=== PATIENT | female | born 1990 | race Two or more races ===

== ENCOUNTER 2016-06-11 08:21 | Emergency (ER) | payer OTHER ==
[2016-06-11 08:27] VITALS: BP 94/49; PULSE 89; TEMP 98; BMI 28.0
--- NOTE | 2016-06-11 09:18 | PDOC ---
History of Present Illness - General Chief Complaint: Cold Symptoms Stated Complaint: COLD, CONGESTION, WHEEZING, SOB Time Seen by Provider: 06/11/16 08:50 - History of Present Illness Initial Comments: 06/11/16 09:12 Patient is here with complaints of cough, cold symptoms, and some wheezing. Suffers from asthma and does not have any Proventil left. Is 22 weeks with high risk , and albuterol Proventil is cleared by her FRYER LINE HELPER for when necessary use. Patient denies fever, but states has copious secretions and cold symptoms Timing/Duration: reports: constant, changing over time Severity: reports: mild, moderate Past History - Travel Traveled outside of the country in the last 30 days: No Close contact w/someone who was outside of country & ill: No - Past Medical History Allergies/Adverse Reactions: Allergies Allergy/AdvReac Type Severity Reaction Status Date / Time No Known Allergies Allergy Verified 06/11/16 08:27 Home Medications: Ambulatory Orders Pnv95/Ferrous Fumarate/FA [ Caplet] 1 each PO DAILY 03/26/16 Albuterol Sulfate Inhaler - [Ventolin HFA Inhaler -] 1 - 2 inh PO Q4H #1 inhaler 06/11/16 Albuterol Sulfate [Proair Respiclick] 90 mcg IH Q6H PRN #1 [email or web address] 06/11/16 Anemia: Yes Asthma: Yes Cancer: No Cardiac Disorders: No Diabetes: No HTN: No (LOW BP) Seizures: No Thyroid Disease: No - Surgical History Abdominal Surgery: Yes (IUD SX REMOVED) - Family Disease History Family Disease History: Diabetes: Grandparents (pat gf) - Reproductive History (#): 9 Para: 3 Therapeutic (s) & number: Yes Spontaneous : 0 - Immunization History Immunization Up to Date: Yes - Psycho/Social/Smoking Cessation Hx Anxiety: No Suicidal Ideation: No Smoking Status: No Smoking History: Never smoked Have you smoked in the past 12 months: No Number of Cigarettes Smoked Daily: 0 Cigars Per Day: 0 Hx Alcohol Use: No Drug/Substance Use Hx: No Substance Use Type: None Hx Substance Use Treatment: No Respiratory Specific PMHX - Complaint Specific PMHX Bronchitis: No Pneumonia: No Review of Systems - Review of Systems Able to Perform ROS?: Yes Is the patient limited Bulgarian proficient: Yes Constitutional: Yes: Symptoms Reported, See HPI, Malaise. No: Fever HEENTM: Yes: Symptoms Reported, See HPI, Nose Congestion Respiratory: Yes: See HPI (clear), Cough, Wheezing (nonproductive) Musculoskeletal: No: Symptoms Reported All Other Systems: Reviewed and Negative *Physical Exam - Vital Signs Last Vital Signs Temp Pulse Resp BP Pulse Ox 98.0 F 89 20 94/49 99 06/11/16 08:24 06/11/16 08:24 06/11/16 08:24 06/11/16 08:24 06/11/16 08:24 - Physical Exam General Appearance: Yes: Nourished, Appropriately Dressed, Apparent Distress, Mild Distress HEENT: positive: AARTI, TMs Normal (congested but clear), Nasal Congestion, Rhinorrhea Neck: positive: Supple, Lymphadenopathy (R), Lymphadenopathy (L) Respiratory/Chest: positive: Lungs Clear, Wheezing Gastrointestinal/Abdominal: positive: Soft Musculoskeletal: positive: Normal Inspection Extremity: positive: Normal Capillary Refill, Normal Range of Motion Integumentary: positive: Dry, Pale Neurologic: positive: mlt II-XII NML intact, Fully Oriented, Alert, Normal Mood/ Affect, Normal Response, Motor Strength 5/5 Progress Note - Progress Note Progress Note: Probable common cold with , will treat conservatively *DC/Admit/Observation/Transfer Diagnosis at time of Disposition: Common cold virus - Discharge Dispostion Disposition: HOME Condition at time of disposition: Stable Admit: No - Patient Instructions Printed Discharge Instructions: DI for Common Cold Additional Instructions: Rest, drink lots of fluids: Teas, water, soups, Pedialyte Saltwater gargles Steamy showers/seem to face break up mucus Avoid contact with others until fevers and cough resolved Lots of handwashing and good hygiene Continue [id number] medications for symptomatic relief Tylenol or Motrin for fever and pain Followup with private physician in one to 2 days as needed Return to emergency department for worsened symptoms, fevers, dehydration
== END 2016-06-11 09:20 | disposition home or self-care (01) ==
LOC: JERFT 08:21
DX: O26.892 Other specified pregnancy related conditions, second trimester (principal); J00 Acute nasopharyngitis [common cold]; J45.909 Unspecified asthma, uncomplicated; Z3A.22 22 weeks gestation of pregnancy; I95.9 Hypotension, unspecified
CPT/HCPCS: 99281-25

== ENCOUNTER 2016-07-16 13:36 | Observation (INO) | payer OTHER ==
[2016-07-16] MEDS ORDERED: SODIUM CHLORIDE 1,000 ML IV STA (14:08)
--- NOTE | 2016-07-16 15:15 | PDOC ---
History of Present Illness - General Chief Complaint: Syncope/Near Syncope Stated Complaint: PT FELL AND PASSED OUT Time Seen by Provider: 07/16/16 13:54 - History of Present Illness Initial Comments: 07/16/16 15:15 Ms. Morris is a 26-yea-old female who is currently 28 weeks . She presents the to the ED today after a syncopal episode at home where she fell down 3 stairs. she then came to the hospital and was evaluated by labor and delivery. At labor and delivery it was discovered she had a heart rate 150 and 170. She also admits to palpitations SOB and dizziness with these episodes. Patient states this has happened to her before and she is currently being followed by cardiology for the issue. She recently had a holter monitor placed and it was removed yesterday. She states that she is due for a echocardiogram. It is scheduled 2 weeks from now. Pt. denies head, neck or back pain. Denies any recent illness, fevers, chills, rhinorrhea, cough, n/v/d. Past History - Past Medical History Allergies/Adverse Reactions: Allergies Allergy/AdvReac Type Severity Reaction Status Date / Time No Known Allergies Allergy Verified 07/16/16 13:55 Home Medications: Ambulatory Orders Pnv95/Ferrous Fumarate/FA [ Caplet] 1 each PO DAILY 03/26/16 Albuterol Sulfate Inhaler - [Ventolin HFA Inhaler -] 1 - 2 inh PO Q4H PRN Anemia: Yes Asthma: Yes Cancer: No Cardiac Disorders: No Diabetes: No HTN: No (LOW BP) Seizures: No Thyroid Disease: No - Surgical History Abdominal Surgery: Yes (IUD SX REMOVED) - Family Disease History Family Disease History: Diabetes: Grandparents (pat gf) - Reproductive History (#): 9 Para: 3 Therapeutic (s) & number: Yes Spontaneous : 0 - Immunization History Immunization Up to Date: Yes - Psycho/Social/Smoking Cessation Hx Anxiety: No Suicidal Ideation: No Smoking Status: No Smoking History: Never smoked Have you smoked in the past 12 months: No Number of Cigarettes Smoked Daily: 0 Cigars Per Day: 0 Information on smoking cessation initiated: No Hx Alcohol Use: No Drug/Substance Use Hx: No Substance Use Type: None Hx Substance Use Treatment: No *Physical Exam - Vital Signs Last Vital Signs Temp Pulse Resp BP Pulse Ox 88 18 99/57 98 07/16/16 13:45 07/16/16 13:45 07/16/16 13:45 07/16/16 13:45 - Physical Exam Comments: 07/16/16 15:26 GENERAL: Well developed, well nourished. Awake and alert. No acute distress. HEENT: Normocephalic, atraumatic. PERRLA, EOMI. No conjunctival pallor. Sclera are non- icteric. Moist mucous membranes. Oropharynx is clear. NECK: (-) TTP of midline. Supple. Full ROM. No JVD. Carotid pulses 2+ and symmetric, without bruits. No thyromegaly. No lymphadenopathy. CARDIOVASCULAR: Regular rate and rhythm. (+) III/ systolic murmur loudest at the base between the 2nd/3rd intercostal space.(-) rubs, or gallops. Distal pulses are 2+ and symmetric. PULMONARY: No evidence of respiratory distress. Lungs clear to auscultation bilaterally. No wheezing, rales or rhonchi. ABDOMINAL: Obviously female with the height of the fundus past the umbilicus. Soft. Non-tender. . No rebound or guarding. No organomegaly. Normoactive bowel sounds. MUSCULOSKELETAL Normal range of motion at all joints. No bony deformities or tenderness. No CVA tenderness. EXTREMITIES: No cyanosis. No clubbing. No edema. No calf tenderness. SKIN: Warm and dry. Normal capillary refill. No rashes. No jaundice. NEUROLOGICAL: Alert, awake, appropriate. Cranial nerves 2-12 intact. No deficits to light touch and temperature in face, upper extremities and lower extremities. No motor deficits in the in face, upper extremities and lower extremities. Normoreflexic in the upper and lower extremities. Normal speech. Toes are down- going bilaterally. Gait is normal without ataxia. PSYCHIATRIC: Cooperative. Good eye contact. Appropriate mood and affect. Medical Decision Making - Medical Decision Making 07/16/16 13:30 Ms. Morris is a 26 y/o female 28 weeks presenting after a syncopal episode. Pt. was evaluated by L&D for the pregancy and sent downstairs to be medically cleared. She had basic labs drawn upstairs. Her rate is now 76 bpm with a regular rate and rhythm. Will call for a cardiology consult. Regarding the fall, pt. has no focal neurological deficits, and has no mental status changes two hours after event. [place] CT rule is a zero, Nexus criteria is a zero, will not image at this time. CBC, CMP is WNL. Labs drawn by labor and delivery Will order echocardiogram. Fluids Will re-evaluate. 15:[address] Mcconnell. [address] page for [address]. Souza. 07/16/16 16:[address] Mcconnell. Spoke with at this time and discussed the case. Agreed to admit to obs. Will see tomorrow. *DC/Admit/Observation/Transfer Diagnosis at time of Disposition: Cardiac related syncope Qualifiers: Weeks of gestation: 28 weeks Qualified Code(s): Z3A.28 - 28 weeks gestation of - Discharge Dispostion Disposition: HOME Condition at time of disposition: Good Admit: Yes
[2016-07-16] MEDS ORDERED: ACETAMINOPHEN 325 MG TABLET (FP) PO ONE (17:36)
[2016-07-16] MEDS ORDERED: ALBUTEROL SO4 6.7 GM HFA INHALER IH PRN ×2 (19:31→19:52)
[2016-07-16] MEDS ORDERED: ACETAMINOPHEN 325 MG TABLET (FP) PO PRN (19:32)
--- NOTE | 2016-07-16 19:40 | HP ---
Admitting History and Physical - Admission Chief Complaint: syncopal episode, palpitations History of Present Illness: 26 yo female with single IUP at 28.5 weeks gestation presents to [facility] today with complaints of a syncopal episode and a fall down 3 stairs this morning. The patient was unsure if she fell forward on her abdomen or if she fell on her back, but she awoke on her side. The patient states she feels some sorenss in her lower hip area, but denies any painful contractions or vaginal bleeding. Pt reports positive movement. The patient was seen on Labor and Delivery with a normal heart rate tracing - reactive non stress test - and also had an ultrasound showing reassuring status of fetus. While on the labor floor , the patient did have a period of tachycardia up to the 170s for approx 1-2 minutes, and at that time the patient did feel light headed and SOB. The patient has had palpitations several weeks ago and was triaged in the ED and told she had a "panic attack." However, after another episode 2 weeks ago, the patient was referred to cardiology as an outpatient. She did under go holter monitoring and was set up for an Echocardiogram as an outpatient. Since being seen in the ED today, the patient did receive an echocardiogram (report/ read pending) and has had no more episodes of tachycardia/syncope/SOB. Cardiology was consulted and advised admitting patient to observation overnight for cardiac monitoring. 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 Pulmonary: Yes: Asthma ...LMP: 03/25/13 Psych: Yes: Anxiety (history of "anxiety attacks" this ) - Smoking History Smoking history: Never smoked Have you smoked in the past 12 months: No Aproximately how many cigarettes per day: 0 - Alcohol/Substance Use Hx Alcohol Use: No History of Substance Use: reports: None - Social History Usual Living Arrangement: Yes: With Spouse ADL: Independent History of Recent Travel: No Home Medications - Allergies Allergies/Adverse Reactions: Allergies Allergy/AdvReac Type Severity Reaction Status Date / Time No Known Allergies Allergy Verified 07/16/16 13:55 - Home Medications Home Medications: Ambulatory Orders Pnv95/Ferrous Fumarate/FA [ Caplet] 1 each PO DAILY 03/26/16 Albuterol Sulfate Inhaler - [Ventolin HFA Inhaler -] 1 - 2 inh PO Q4H PRN Review of Systems - Review of Systems Constitutional: denies: Chills, Fever Eyes: reports: No Symptoms HENT: reports: No Symptoms Cardiovascular: reports: Palpitations, Shortness of Breath Respiratory: reports: SOB. denies: Orthopnea, Wheezing Gastrointestinal: denies: Nausea, Vomiting Breasts: reports: No Symptoms Reported Integumentary: reports: No Symptoms Neurological: reports: Syncope. denies: Dizziness, Headache Psychiatric: reports: No Symptoms Physical Examination Vital Signs: Vital Signs Temperature Pulse Rate 88 07/16/16 13:45 Respiratory Rate 18 07/16/16 13:45 Blood Pressure 99/57 07/16/16 13:45 O2 Sat by Pulse Oximetry (%) 100 07/16/16 14:20 Constitutional: Yes: Well Nourished, No Distress Eyes: Yes: Conjunctiva Clear, EOM Intact HENT: Yes: Atraumatic, Normocephalic Neck: Yes: Supple Cardiovascular: Yes: Regular Rate and Rhythm (currently, did have episode of tachycardia earlier) Respiratory: Yes: Regular Gastrointestinal: Yes: Normal Bowel Sounds, Soft, Other (no contractions/ abdominal tenderness noted) Renal/: Yes: Extremities: Yes: WNL Neurological: Yes: Alert, Oriented Psychiatric: Yes: Alert, Oriented Problem List - Problems (1) Cardiac related syncope Code(s): R55 - SYNCOPE AND COLLAPSE (2) Code(s): Z33.1 - STATE, INCIDENTAL Qualifiers: Weeks of gestation: 28 weeks Qualified Code(s): Z3A.28 - 28 weeks gestation of Assessment/Plan 26 y/o with SIUP at 28.5 weeks with tachycardia and syncope - status reassuring, non stress test reactive. Ultrasound normal. For non stress test Q4 hours - no signs of labor or placental abruption - tachycardia and syncope. Patient to be admitted as observation overnight as per cardiology recomendations - for cardiology consult - appreciate cardiology input - regular diet - OOB with assistance
[2016-07-16] MEDS: SODIUM CHLORIDE 1,000 ML IV SCH ×2 (20:38→22:58)
--- NOTE | 2016-07-16 23:04 | EKG ---
Test Reason : Blood Pressure : / mmHG Vent. Rate : 076 BPM Atrial Rate : 076 BPM P-R Int : 174 ms QRS Dur : 088 ms QT Int : 376 ms P-R-T Axes : 051 070 011 degrees QTc Int : 423 ms NORMAL SINUS RHYTHM WITH SINUS ARRHYTHMIA NORMAL ECG WHEN COMPARED WITH ECG OF 26-MAR-2016 16:17, NO SIGNIFICANT CHANGE WAS FOUND Confirmed by JADYN ARCE MD ([id number]) on 07/16/2016 11:04:29 PM Referred By: Confirmed By:JADYN ARCE MD
[2016-07-17 00:45] VITALS: BMI 33.0
[2016-07-17] MEDS: SODIUM CHLORIDE 1,000 ML IV SCH ×2 (08:53→19:39)
[2016-07-17] MEDS ORDERED: PT OWN MED DRAWER 7, Y5N ONE (10:26)
[2016-07-17] MEDS: PRENATAL VITAMINS W/ FOLIC ACID TABLET (FP) PO SCH (11:36)
[2016-07-18] MEDS: SODIUM CHLORIDE 1,000 ML IV SCH (06:06)
[2016-07-18 06:11] VITALS: TEMP 97.9
[2016-07-18] MEDS: PRENATAL VITAMINS W/ FOLIC ACID TABLET (FP) PO SCH (10:15)
--- NOTE | 2016-07-18 12:15 | CON.CARD ---
Consult Consult Specialty:: Cardiology Referred by:: B[employer] M[employer] AND CARRIAGE OPERATOR Reason for Consultation:: Syncope, palpitations - History of Present Illness Chief Complaint: Syncope, palpitations History of Present Illness: Ms. Morris is a 26-yea-old female h/o asthma, who is currently 28 weeks IUP admitted after sustaining syncopal episode without prodromal sxs where she fell down 3 stairs. At labor and delivery, reported that she had a heart rate 150 and 170, strips unavailable for review. She reports bronchodilator-responsive dyspnea, palpitations, tele monitor shows sinus tachycardia, echo with normal LV fxn. 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 Pulmonary: Yes: Asthma ...LMP: 03/25/13 Psych: Yes: Anxiety (history of "anxiety attacks" this ) - Alcohol/Substance Use Hx Alcohol Use: No History of Substance Use: reports: None - Smoking History Smoking history: Never smoked Have you smoked in the past 12 months: No Aproximately how many cigarettes per day: 0 - Social History ADL: Independent History of Recent Travel: No Home Medications - Allergies Allergies/Adverse Reactions: Allergies Allergy/AdvReac Type Severity Reaction Status Date / Time No Known Allergies Allergy Verified 07/16/16 13:55 - Home Medications Home Medications: Ambulatory Orders Pnv95/Ferrous Fumarate/FA [ Caplet] 1 each PO DAILY 03/26/16 Albuterol Sulfate Inhaler - [Ventolin HFA Inhaler -] 1 - 2 inh PO Q4H PRN Review of Systems - Review of Systems Cardiovascular: reports: Palpitations, Shortness of Breath Neurological: reports: Syncope Vital Signs: Vital Signs Temperature 97.9 F 07/18/16 06:00 Pulse Rate 84 07/18/16 10:16 Respiratory Rate 20 07/18/16 10:16 Blood Pressure 103/56 07/18/16 10:16 O2 Sat by Pulse Oximetry (%) 97 07/18/16 05:00 Constitutional: Yes: No Distress, Calm Neck: Yes: Supple Respiratory: Yes: Regular, CTA Bilaterally Gastrointestinal: Yes: Normal Bowel Sounds, Soft, Other (Gravid) Cardiovascular: Yes: Regular Rate and Rhythm JVD: No Carotid Bruit: No Heart Sounds: Yes: S1, S2 Edema: No - Other Data NSR without ST-T changes Tele: ST 120s Echo: Report Reviewed Ejection Fraction %: LVEF > or = 40 % Problem List - Problems (1) Code(s): Z33.1 - STATE, INCIDENTAL Qualifiers: Weeks of gestation: 28 weeks Qualified Code(s): Z3A.28 - 28 weeks gestation of (2) Palpitations Code(s): R00.2 - PALPITATIONS (3) Asthma Code(s): J45.909 - UNSPECIFIED ASTHMA, UNCOMPLICATED Qualifiers: Asthma severity: mild intermittent (4) Dyspnea on exertion Code(s): R06.09 - OTHER FORMS OF DYSPNEA (5) Syncope and collapse Code(s): R55 - SYNCOPE AND COLLAPSE (6) Sinus tachycardia Code(s): R00.0 - TACHYCARDIA, UNSPECIFIED Assessment/Plan 07/16/2016 Echo: Normal LV size and fxn, mild TR, tr-mild MR 1. Syncope episode 2. Palpitations with episodes of sinus tachycardia 3. Dyspnea, BD-responsive with h/o asthma 4. 28 wk IUP P:1. Check orthstatic vital signs 2. Albuterol MDI as needed 3. Would not treat sinus tachycardia, she has appt for 24 hr holter monitoring as outpatient 4. Thank you for consultative opportunity
--- NOTE | 2016-07-18 13:41 | DS ---
Physical Examination Vital Signs: Vital Signs Temperature 97.9 F 07/18/16 06:00 Pulse Rate 84 07/18/16 10:16 Respiratory Rate 20 07/18/16 10:16 Blood Pressure 103/56 07/18/16 10:16 O2 Sat by Pulse Oximetry (%) 100 07/18/16 10:15 Constitutional: Yes: Well Nourished, No Distress, Calm Cardiovascular: Yes: Regular Rate and Rhythm Respiratory: Yes: Regular, CTA Bilaterally Gastrointestinal: Yes: Normal Bowel Sounds, Soft ...Rectal Exam: Yes: Deferred Renal/: Yes: . No: Vaginal Bleeding Edema: No Neurological: Yes: Alert, Oriented Psychiatric: Yes: Alert, Oriented Discharge Summary Reason For Visit: CARDIAC SYNCOPE Current Active Problems Asthma (Acute) Cardiac related syncope (Acute) Dyspnea on exertion (Acute) (Acute) Sinus tachycardia (Acute) Syncope and collapse (Acute) Procedures: Principal: Echocardiogram, Telemetry/cardiac monitoring Hospital Course: Patient admitted on 07/16/16 with complaints of a syncopal episode as well as heart palpitations. Pt was seen on Labor and delivery and abruption/ labor was ruled out. The baby's heart rate monitoring was normal throughout the stay. The patient was kept for approx 36 hours on continuous cardiac monitoring and had an EKG and echocardiogram (showing normal LV function). The patient had no further episodes of palpitations/syncope during admission. The patient was seen and cleared for discharge by cardiology on 07/18/16. The patient was obstetrically stable on day of discharge as well. Condition: Good - Instructions Diet, Activity, Other Instructions: Physical activity Resume your normal everyday activity as tolerated but no strenuous exercise until seen by your doctor. You may walk unlimited shasta of and climb stairs. Avoid driving a car at this time - you may ride in a car or take a bus/taxi but do not operate a car yourself. Diet There are no dietary restrictions. Eat healthy, high-fiber foods. Drink 6 to 8 glasses of liquid each day. This will assist in keeping your bowels regular. Pain management You may take Tylenol for any pain. Call MD for any of the following: Severe pain not relieved by medication Contractions, vaginal bleeding or leaking fluid Feelings that you are going to faint or feelings of heart palpitations If the baby is not moving Referrals: Syd Rucker MD [Staff Physician] - 1 Week () Kami Álvarez DO [Staff Physician] - 1 Week Disposition: HOME - Home Medications Comprehensive Discharge Medication List: Ambulatory Orders Pnv95/Ferrous Fumarate/FA [ Caplet] 1 each PO DAILY 03/26/16 Albuterol Sulfate Inhaler - [Ventolin HFA Inhaler -] 1 - 2 inh PO Q4H PRN
[2016-07-18 13:50] VITALS: BP 101/55; PULSE 77
--- NOTE | 2016-10-08 21:01 | PN ---
Progress Note, Physician Chief Complaint: Pt admitted on 07/16/16 with episode of syncope and tachycardia. Cardiology consultation completed. Pt feeling better, desires to go home. - Objective Vital Signs: Vital Signs Temperature 97.9 F 07/18/16 06:00 Pulse Rate 77 07/18/16 13:48 Respiratory Rate 20 07/18/16 10:16 Blood Pressure 101/55 07/18/16 13:48 O2 Sat by Pulse Oximetry (%) 100 07/18/16 10:15 Constitutional: Yes: Well Nourished, No Distress, Calm HENT: Yes: Atraumatic, Normocephalic Neck: Yes: Supple, Trachea Midline Cardiovascular: Yes: Regular Rate and Rhythm Respiratory: Yes: Regular, CTA Bilaterally Gastrointestinal: Yes: Soft, Other (gravid) Psychiatric: Yes: Alert, Oriented Problem List - Problems (1) Cardiac related syncope Code(s): R55 - SYNCOPE AND COLLAPSE (2) Code(s): Z33.1 - STATE, INCIDENTAL Qualifiers: Weeks of gestation: 28 weeks Qualified Code(s): Z3A.28 - 28 weeks gestation of Assessment/Plan 26 y/o with SIUP at 28 + weeks with tachycardia and syncope - non stress tests all reactive during admission - no signs of labor or placental abruption - tachycardia and syncope. S/P cardiology consult - appreciate input - ok to follow up as outpatient per cardiology - stable from OB standpoint for discharge home
== END 2016-07-18 14:09 | disposition home or self-care (01) ==
LOC: JER 13:36 → JERBED 19:11 → J4S 21:31
PROVIDERS: ADMIT Obstetrics & Gynecology; ATTEND Obstetrics & Gynecology
DX: O26.892 Other specified pregnancy related conditions, second trimester (principal); R55 Syncope and collapse; R00.2 Palpitations; J45.909 Unspecified asthma, uncomplicated; G43.809 Other migraine, not intractable, without status migrainosus; Z3A.28 28 weeks gestation of pregnancy
CPT/HCPCS: 93005; 93010; 93306-TC; 99285-25; G0378

== ENCOUNTER 2016-09-26 06:40 | Inpatient (IN) | payer OTHER ==
[2016-09-26 07:37] VITALS: BMI 33.0
[2016-09-26] MEDS ORDERED: ELECTROLYTE-148 SOLN 500 ML IV ONE (08:07)
[2016-09-26] MEDS ORDERED: ALBUTEROL SO4 6.7 GM HFA INHALER IH PRN ×2 (08:08→09:15)
[2016-09-26] MEDS ORDERED: METHYLERGONOVINE MALEATE 0.2 MG/1 ML AMP IM PRN (08:09)
[2016-09-26] MEDS ORDERED: oxyCODONE HCL 5 MG TABLET PO PRN (08:09)
--- NOTE | 2016-09-26 08:18 | HP ---
Past Medical History - Admission Chief Complaint: Here for scheduled c section History of Present Illness: 26 y/o female with SIUP at 39 weeks here for scheduled primary section due to unstable lie. Patient also desires sterilization and requests a bilateral salpingectomy. The patient's has been complicated by episodes of syncope and tachycardia/SVT - has had workup with cardiology which was normal/negative. The patient's symptoms have improved over the last several weeks. The patient has no surgical history. PMH of asthma. No complaints today. +FM, no VB/LOF/Ctx. 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 No: HTN Pulmonary: Yes: Asthma Gastrointestinal: No: GERD, Hemorrhoids Hepatobiliary: No: Hepatitis B, Hepatitis C Renal/: No: Renal Failure, UTI Reproductive: No: Fibroids, PID, Polycystic Ovary Syndrome ...: 7 ...Para: 4 ...Term: 4 ...: 0 ...Spon : 1 ...Induced : 1 ...Multiple Gestation: 0 ...LMP: 12/28/15 ...EDC by Dates: 10/03/16 ...EDC by Sono: 10/03/16 Heme/Onc: No: Anemia Infectious Disease: No: HIV, MRSA, STD's Psych: Yes: Anxiety (history of "anxiety attacks" this ) Rheumatology: No: Lupus, Rheumatoid Arthritis - Past Surgical History Past Surgical History: Yes: Tonsillectomy Hx Myomectomy: No Hx Transabdominal Cerclage: No - Smoking History Smoking history: Never smoked Have you smoked in the past 12 months: No Aproximately how many cigarettes per day: 0 - Alcohol/Substance Use Hx Alcohol Use: No History of Substance Use: reports: None - Social History Usual Living Arrangement: Yes: With Spouse ADL: Independent History of Recent Travel: No Home Medications - Allergies Allergies/Adverse Reactions: Allergies Allergy/AdvReac Type Severity Reaction Status Date / Time No Known Allergies Allergy Verified 09/26/16 07:39 - Home Medications Home Medications: Ambulatory Orders Pnv95/Iron Fum/Folic Acid [ Caplet] 1 each PO DAILY 03/26/16 Albuterol Sulfate Inhaler - [Ventolin HFA Inhaler -] 1 - 2 inh PO Q4H PRN Review of Systems - Review of Systems Constitutional: reports: No Symptoms Eyes: reports: No Symptoms HENT: reports: No Symptoms Neck: reports: No Symptoms Cardiovascular: reports: No Symptoms Respiratory: reports: No Symptoms Gastrointestinal: reports: No Symptoms Genitourinary: reports: No Symptoms Breasts: reports: No Symptoms Reported Musculoskeletal: reports: No Symptoms Integumentary: reports: No Symptoms Neurological: reports: No Symptoms Endocrine: reports: No Symptoms Hematology/Lymphatic: reports: No Symptoms Psychiatric: reports: No Symptoms Physical Exam - Maternity Vital Signs: Vital Signs Temperature 97.8 F 09/26/16 07:22 Pulse Rate 101 H 09/26/16 07:22 Respiratory Rate 14 09/26/16 07:22 Blood Pressure 106/61 09/26/16 07:22 O2 Sat by Pulse Oximetry (%) Constitutional: Yes: Well Nourished, No Distress, Calm Eyes: Yes: Conjunctiva Clear, EOM Intact HENT: Yes: Atraumatic, Normocephalic Neck: Yes: Supple, Trachea Midline Cardiovascular: Yes: Regular Rate and Rhythm Lungs: Clear to auscultation - Abdominal Exam/OB Number of Fetuses: Single Presentation: Vertex Contractions: No Category: I Accelerations: Uniform Decelerations: None - Vaginal Exam/OB Amniotic Membrane Status: Intact - Physical Exam Psychiatric: Yes: Alert, Oriented Hemorrhage Risk Assessment - Risk Factors Medium Risk Factors: Yes: None High Risk Factors: Yes: None Risk Score: 1 Risk Level: Medium Risk Problem List - Problems (1) Term Code(s): Z34.80 - ENCOUNTER FOR SUPRVSN OF NORMAL , UNSP TRIMESTER (2) Encounter for sterilization Code(s): Z30.2 - ENCOUNTER FOR STERILIZATION Assessment/Plan 26 y/o with SIUP at 39 weeks here for primary c section and b/l salpingectomy - AFVSS - NPO, SCDs, Jackman catheter - anesthesia aware and nursing aware - consents signed for procedure, R/B/A again explained - for c section this a.m.
[2016-09-26] MEDS: OXYTOCIN 20 UNITS in 0.9% NS 1,000 ML IV SCH ×2 (08:32→15:10)
[2016-09-26] MEDS ORDERED: ELECTROLYTE-148 SOLN 1,000 ML IV SCH (08:37)
--- NOTE | 2016-09-26 09:07 | OP ---
Operative Note - Note: Operative Date: 09/26/16 Pre-Operative Diagnosis: unstable lie, desire sterilization Operation: primary low transverse section, bilateral salpingectomy Findings: normal bilateral tubes and ovaries normal intrapelvic female anatomy Post-Operative Diagnosis: Same as Pre-op Surgeon: Kami Álvarez Ash Conveyor Operator: Venancio Mane Anesthesiologist/ADJUNCT INSTRUCTOR CHEMISTRY: Ines Perez Anesthesia: Spinal Estimated Blood Loss (mls): 600 Operative Report Dictated: Yes
[2016-09-26] MEDS ORDERED: ONDANSETRON 4 MG/2 ML VIAL IVPB PRN (09:27)
[2016-09-26] MEDS ORDERED: ACETAMINOPHEN 1000 MG/100 ML VIAL (NON FORMULARY) IVPB PRN (09:28)
[2016-09-26] MEDS ORDERED: TUBERCULIN PPD 5 TU/0.1ML SYRINGE (IN PATIENT USE ONLY) ID ONE (10:03)
[2016-09-26] MEDS: PRENATAL VITAMINS W/ FOLIC ACID TABLET (FP) PO SCH (11:14)
--- NOTE | 2016-09-26 13:18 | OP ---
DATE OF OPERATION: 09/26/2016 PROCEDURE: Primary low transverse section and bilateral salpingectomy. PREOPERATIVE DIAGNOSIS: Desire for permanent sterilization and unstable lie. POSTOPERATIVE DIAGNOSIS: Desire for permanent sterilization and unstable lie. SURGEON: Kami Álvarez DO LOSS CONTROL MANAGER: CODY Montalvo ANESTHESIA: Spinal. ANESTHESIOLOGIST: Ines Perez MD COMPLICATIONS: None. ESTIMATED BLOOD LOSS: 600 mL SPECIMENS: Bilateral fallopian tubes and placenta sent to Pathology for permanent evaluation. COUNTS: Sponge, needle and instrument counts were correct at the end of the case. DISPOSITION: Stable to PACU. DESCRIPTION OF PROCEDURE: Patient is a 26-year-old female who is a G7, P4, who presented to the office and had a fetus with who was in an unstable lie. The patient had elected to undergo a primary section secondary to this complication. Although the presentation was cephalic at the time of the section , the patient did request to proceed with a primary section. The patient also desired permanent sterilization. The patient was counseled on her options and was consented for a primary section with bilateral salpingectomy. The patient was brought to [facility] on September 26, 2016. Consents were reconfirmed. The patient was then taken back to the operating room. She was given spinal anesthesia by Dr. Ines Perez. She was placed in the dorsal supine position. A Jackman catheter was placed under sterile conditions and SCDs were applied to the bilateral lower extremities. The patient was prepped and draped in the usual sterile fashion. A hard time-out was performed. A Pfannenstiel incision was then created on the skin with a scalpel and carried down to the underlying layer of rectus fascia with a scalpel. The fascia was incised on either side of the midline with the Bovie, and the fascial incision was carried in the superolateral direction with the Bovie. The fascia was tented upward and dissected off the underlying layer of rectus muscle. The muscle was then bluntly. The peritoneum was entered bluntly and the peritoneum was then carefully dissected to allow for adequate room for delivery. The bladder blade was then inserted. A transverse incision was created on the uterus, which was extended in the superolateral direction bluntly. The infant was then delivered from the left occiput transverse position without difficulty. The bilateral shoulders and the remainder of the infant were delivered with ease. The cord was clamped twice and cut in between. The was taken over to the warmer to be assessed by the neonatology staff where it received scores of 9 of 9. The placenta was then delivered manually and in tact. The uterus was exteriorized from the abdomen, inspected and cleared of all amniotic membrane and debris with a dry lap sponge. The hysterotomy was reapproximated in a double layer closure in a running locked fashion. Bilateral tubes and ovaries were noted to be normal. Attention was then turned to the right fallopian tube, which was elevated and undermined with a Tracy clamp. One stitch was placed along the mesosalpinx and tied [id number] around the Tracy clamp. The fallopian tube was then elevated and resected with Metzenbaum scissors. Excellent hemostasis was achieved. The same was repeated with the left fallopian tube. The uterus was then placed back into the abdomen. Bilateral gutters were inspected and cleared of all debris. The hysterotomy was then noted to be hemostatic. The salpingectomy sites were hemostatic. The peritoneum was re- approximated using 2-0 chromic in a running fashion. The musculature was reapproximated with two interrupted sutures using 1 Vicryl suture. The fascia was reapproximated using 1 Vicryl suture in a running fashion. The subcutaneous tissue was irrigated and reapproximated with three interrupted sutures using Vicryl, and the skin was reapproximated in a subcuticular fashion using 3-0 Vicryl suture, and Steri-Strips were applied. The patient was recovering well in the recovery room at the time of this dictation. Sponge and needle count was correct at the end of the case. KAMI ÁLVAREZ DO /[id number] MTDD
[2016-09-26] MEDS: CEFAZOLIN (PRE-DOCKED) 50 ML IVPB SCH ×2 (15:18→22:18)
[2016-09-26] MEDS: IBUPROFEN 800 MG/8 ML IJ IVPB PRN (19:14)
[2016-09-27] MEDS ORDERED: IBUPROFEN 800 MG/8 ML IJ IVPB ONE (04:33)
[2016-09-27] MEDS: IBUPROFEN 800 MG/8 ML IJ IVPB PRN (04:38)
[2016-09-27] MEDS: CEFAZOLIN (PRE-DOCKED) 50 ML IVPB SCH (05:50)
--- NOTE | 2016-09-27 07:54 | PN ---
Post Progress Note - Subjective Subjective: 26 yo Para 4 status post primary , seen and evaluated. Doing well, no complaints. Type of Delivery: Primary C/S Vital Signs: Vital Signs Temperature 98.3 F 09/27/16 06:00 Pulse Rate 71 09/27/16 06:00 Respiratory Rate 18 09/27/16 07:00 Blood Pressure 107/60 09/27/16 06:00 O2 Sat by Pulse Oximetry (%) 100 09/26/16 10:05 Breast Exam: Yes: Soft Uterus: Yes: Fundus Firm Incision: Yes: Dressing dry and intact Abdomen/GI: Yes: Abdomen soft Lochia: Yes: Rubra Lochia, amount: Small Extremities: Yes: Calves non-tender Perineum: Yes: Intact Activity: Other (Lying in bed) Problem List - Problems (1) Status post primary low transverse section Code(s): Z98.891 - HISTORY OF UTERINE SCAR FROM PREVIOUS SURGERY Assessment/Plan Status post primary Ambulation Analgesia PRN pain Continue routine Post op care
[2016-09-27] MEDS ORDERED: BISACODYL 10 MG SUPP.RECT RC PRN (08:09)
[2016-09-27 08:14] LABS: BASOPHIL 0.4 % (0-2.0); EOSINOPHIL 0.3 % (0-4.5); MCHC 33.5 g/dl (32.0-36.0); MEAN CELL VOLUME 86.6 fl (80-96); MEAN PLT VOLUME 10.2 fl (7.5-11.1); NEUTROPHILS 75.4 % (42.8-82.8); PLATELET COUNT 123 K/MM3 (134-434); RDW 12.9 % (11.6-15.6); WHITE BLOOD COUNT 12.1 K/mm3 (4.0-10.0)
--- NOTE | 2016-09-27 08:46 | PN ---
Progress Note (short form) - Note Progress Note: Post op day#1.S/P C section under spinal anesthesia with duramorph uneventful.Patient stable and has little pain for which she is on medication.No any anesthesia related problem.Patient DC from the anesthesia care.
[2016-09-27] MEDS: SIMETHICONE 80 MG TAB.CHEW (FP) PO PRN ×3 (09:04→19:36)
[2016-09-27] MEDS: PRENATAL VITAMINS W/ FOLIC ACID TABLET (FP) PO SCH (09:04)
[2016-09-27] MEDS: ACETAMINOPHEN 325 MG TABLET (FP) PO PRN ×3 (09:04→19:36)
[2016-09-27] MEDS ORDERED: PNEUMOC 13-VAL CONJ-DIP CRM/PF 0.5 ML DISP.SYRIN IM ONE (10:00)
[2016-09-27] MEDS ORDERED: DIPHTH,PERTUSS(ACELL),TET 0.5 ML DISP.SYRIN IM ONE (10:00)
[2016-09-27] MEDS ORDERED: PNEUMOCOCCAL 23 VACCINE 0.5 ML VIAL IM ONE (10:00)
[2016-09-27] MEDS: IBUPROFEN 600 MG TABLET (FP) PO PRN (12:55)
[2016-09-27] MEDS: oxyCODONE HCL 5 MG TABLET PO PRN (19:37)
[2016-09-27] MEDS: SENNOSIDES/DOCUSATE COMBO (SENNA PLUS) TABLET (UD) PO PRN (19:37)
[2016-09-28] MEDS: oxyCODONE HCL 5 MG TABLET PO PRN ×4 (00:52→21:08)
[2016-09-28] MEDS: ACETAMINOPHEN 325 MG TABLET (FP) PO PRN ×4 (00:53→21:07)
[2016-09-28] MEDS: SIMETHICONE 80 MG TAB.CHEW (FP) PO PRN ×4 (00:53→21:08)
--- NOTE | 2016-09-28 08:12 | PN ---
Post Progress Note - Subjective Subjective: c/o incisional pain , passing gas and ambulating s/p section. Type of Delivery: Primary C/S Vital Signs: Vital Signs Temperature 98.7 F 09/27/16 22:00 Pulse Rate 75 09/27/16 22:00 Respiratory Rate 18 09/27/16 22:00 Blood Pressure 101/52 09/27/16 22:00 O2 Sat by Pulse Oximetry (%) 100 09/26/16 10:05 Breast Exam: Yes: Soft Uterus: Yes: Fundus Firm, Fundus below umbilicus Incision: Yes: Dressing dry and intact Lochia: Yes: Rubra Lochia, amount: Moderate Extremities: Yes: Calves non-tender Perineum: Yes: Intact Activity: Ambulating - Labs Labs: CBC WBC 12.1 K/mm3 (4.0-10.0) H 09/27/16 06:00 RBC 3.17 M/mm3 (3.60-5.2) L 09/27/16 06:00 Hgb 9.2 GM/dL (10.7-15.3) L D 09/27/16 06:00 Hct 27.5 % (32.4-45.2) L 09/27/16 06:00 MCV 86.6 fl (80-96) 09/27/16 06:00 MCHC 33.5 g/dl (32.0-36.0) 09/27/16 06:00 RDW 12.9 % (11.6-15.6) 09/27/16 06:00 Plt Count 123 K/MM3 (134-434) L 09/27/16 06:00 MPV 10.2 fl (7.5-11.1) 09/27/16 06:00 Neutrophils % 75.4 % (42.8-82.8) 09/27/16 06:00 Lymphocytes % 15.3 % (8-40) 09/27/16 06:00 Monocytes % 8.6 % (3.8-10.2) 09/27/16 06:00 Eosinophils % 0.3 % (0-4.5) 09/27/16 06:00 Basophils % 0.4 % (0-2.0) 09/27/16 06:00 Assessment/Plan s/p section continue current care
[2016-09-28] MEDS: IBUPROFEN 600 MG TABLET (FP) PO PRN ×2 (09:24→17:43)
[2016-09-28] MEDS: PRENATAL VITAMINS W/ FOLIC ACID TABLET (FP) PO SCH (09:24)
--- NOTE | 2016-09-28 12:36 | DS ---
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 The patient underwent an uncomplicated procedure ( see operative report for full details). The patient underwent an uncomplicated post op/post recovery and on post op day 2 was voiding, ambulating, tolerating a regular diet and passing flatus. Patient's hemoglobin was 9.2 on post op day 1 and was stable at 9.7 on post op day 3. The patient was then discharged home in stable condition on post operative day 3. Condition: Good - Instructions Diet, Activity, Other Instructions: Physical activity Resume your normal everyday activity as tolerated no heavy lifting or exercise until seen by your surgeon. You may walk unlimited amounts and climb stairs. You may resume driving the car when you feel safe and comfortable behind the wheel. No sexual activity as instructed. Wound care If there are tapes on the skin, leave them in place. They will peel off in the next 7 to 10 days. Do Not Peel them off. You may shower the day after surgery. If there are tapes present on the skin, you may shower over them. Diet There are no dietary restrictions. Eat healthy, high-fiber foods. Drink 6 to 8 glasses of liquid each day. This will assist in keeping your bowels regular. Pain management You may take Tylenol or Ibuprofen (for example, Motrin, Advil etc.) as needed for mild pain. If any prescription medication is ordered, it should be taken as prescribed for moderate to severe pain. Call MD for any of the following: Severe pain not relieved by medication Fever of 101 or higher Excessive bleeding or drainage on dressing Inability to urinate Referrals: Kami Álvarez DO [Staff Physician] - 1 Week (for an incision check/evaluation) Disposition: HOME - Home Medications Comprehensive Discharge Medication List: Ambulatory Orders Pnv95/Iron Fum/Folic Acid [ Caplet] 1 each PO DAILY 03/26/16 Albuterol Sulfate Inhaler - [Ventolin HFA Inhaler -] 1 - 2 inh PO Q4H PRN
[2016-09-28] MEDS: SENNOSIDES/DOCUSATE COMBO (SENNA PLUS) TABLET (UD) PO PRN (21:08)
[2016-09-29] MEDS: SIMETHICONE 80 MG TAB.CHEW (FP) PO PRN ×2 (02:30→06:47)
[2016-09-29] MEDS: oxyCODONE HCL 5 MG TABLET PO PRN ×2 (02:30→06:48)
[2016-09-29] MEDS: ACETAMINOPHEN 325 MG TABLET (FP) PO PRN ×2 (02:31→06:47)
[2016-09-29 07:55] LABS: BASOPHIL 0.7 % (0-2.0); EOSINOPHIL 1.3 % (0-4.5); MCH 29.5 pg (25.7-33.7); MCHC 33.9 g/dl (32.0-36.0); MEAN CELL VOLUME 86.8 fl (80-96); MEAN PLT VOLUME 9.4 fl (7.5-11.1); NEUTROPHILS 63.5 % (42.8-82.8); PLATELET COUNT 139 K/MM3 (134-434); RDW 13.4 % (11.6-15.6); WHITE BLOOD COUNT 8.8 K/mm3 (4.0-10.0)
[2016-09-29 07:57] VITALS: BP 103/59; PULSE 62; TEMP 97.7
[2016-09-29] MEDS: PRENATAL VITAMINS W/ FOLIC ACID TABLET (FP) PO SCH (09:34)
[2016-09-29] MEDS: IBUPROFEN 600 MG TABLET (FP) PO PRN (09:35)
--- NOTE | 2016-10-03 13:08 | PATH ---
Surgical Pathology Report Patient Name: TORY LEON Med. Rec. #: [id number] /Age/Gender: 1990 (Age: 26) / F Account: [id number] Location: [facility] OBS/WEIGHER AND MIXER Taken: 09/26/2016 Received: 09/29/2016 Reported: 10/03/2016 Physicians: Kami Álvarez M.D. Specimen(s) Received A: PLACENTA B: PORTION RT FALLOPIAN TUBE C: PORTION LT FALLOPIAN TUBE Clinical History , 39 weeks IUP, transverse lie, scheduled primary c/section, requesting BTL Primary c/section and BTL Final Diagnosis A. PLACENTAL DELIVERY: FOCALLY DISRUPTED THIRD TRIMESTER PLACENTA WITH MODERATE INCREASE IN PREVILLOUS, PERIVILLOUS, AND PRECHORIONIC FIBRIN DEPOSITION, THREE VESSEL UMBILICAL CORD, AND UNREMARKABLE PLACENTAL MEMBRANES. B. PORTION OF FALLOPIAN TUBE, RIGHT, LIGATION: FIMBRIATED PORTION OF FALLOPIAN TUBE WITH COMPLETE CROSS SECTION. C. PORTION OF FALLOPIAN TUBE, LEFT TUBAL LIGATION: FIMBRIATED PORTION OF FALLOPIAN TUBE WITH COMPLETE CROSS-SECTION. Electronically Signed Stefan Fuller M.D. Gross Description A. The specimen is received fresh, labeled "placenta" is a 487 gram, 17.5 x 16.5 x 2.3 cm placenta with attached membranes and umbilical cord. The attached membranes are sherwood, translucent with focal opacities and insert marginally. The umbilical cord measures 30 cm in length and averages 1 cm in diameter. The cord inserts centrally. No true knots or strictures are identified. Cut surface of the umbilical cord reveals 3 vessels. The surface is chauhan-blue with fibrin deposition and appropriate caliber vessels. The maternal surface is red-brown with focal defects. Sectioning reveals red-brown, spongy parenchyma. No focal lesions are identified. Therapy Coordinator sections are submitted in three cassettes as follows: 1- membrane rolls and umbilical cord; 2-3- full thickness sections of placenta. B. Received fresh labeled "right portion of tube" is a 3.5 cm in length fimbriated portion of fallopian tube. The outer surface is sherwood-lam and smooth. Sectioning reveals an unremarkable lumen. Therapy Coordinator sections are submitted in 2 cassettes as follows: 1-fimbria; 2-cross sections of fallopian tube. C. Received in formalin labeled "left portion of tube" is a 2.5 cm in length fimbriated portion of fallopian tube. The outer surface is sherwood-lam and smooth. Sectioning reveals an unremarkable lumen. Therapy Coordinator sections are submitted in 2 cassettes as follows: 1-fimbria; 2-cross sections of fallopian tube. 10/02/2016 [facility]10/02/2016
== END 2016-09-29 13:30 | disposition home or self-care (01) | DRG 766 ==
LOC: JLDR 06:40 → J3W 10:56
PROVIDERS: ADMIT Obstetrics & Gynecology; ATTEND Obstetrics & Gynecology
PROC: 10D00Z1 Extraction of Products of Conception, Low, Open Approach (ICD-10-PCS; principal; 2016-09-26)
PROC: 0UL70ZZ Occlusion of Bilateral Fallopian Tubes, Open Approach (ICD-10-PCS; 2016-09-26)
DX: O32.0XX0 Maternal care for unstable lie, not applicable or unspecified (principal); Z3A.39 39 weeks gestation of pregnancy; Z30.2 Encounter for sterilization; Z37.0 Single live birth
CPT/HCPCS: 36415; 85025; 88302-TC; 88307-TC; 90715; 90732; G0009

== ENCOUNTER 2017-10-24 11:03 | Emergency (ER) | payer OTHER ==
[2017-10-24 11:12] VITALS: BP 117/64; PULSE 108; TEMP 98.4; BMI 32.1
--- NOTE | 2017-10-24 11:26 | PDOC ---
History of Present Illness - General Chief Complaint: Respiratory Stated Complaint: COUGH,HEADACHE Time Seen by Provider: 10/24/17 11:20 History Source: Patient Exam Limitations: No Limitations - History of Present Illness Initial Comments: 10/24/17 11:25 Patient is a 27-year-old female past medical history of asthma, anemia, who presents emergency department for 3 days of cough, headache and shortness of breath. Pt has been using her ventolin inhaler with little relief. States that she also has chest tightness that is made worse with coughing. Denies fever, sore throat, ear pain, palpitations, n/v/d. Past History - Travel Traveled outside of the country in the last 30 days: No Close contact w/someone who was outside of country & ill: No - Past Medical History Allergies/Adverse Reactions: Allergies Allergy/AdvReac Type Severity Reaction Status Date / Time No Known Allergies Allergy Verified 10/24/17 11:08 Home Medications: Ambulatory Orders Albuterol 2.5/Ipratropium 0.5 [Duoneb -] 1 amp NEB Q4H #20 amp 10/24/17 Guaifenesin AC [Robitussin AC] 10 ml PO Q6H #200 ml MDD 4 10/24/17 predniSONE [Deltasone -] 40 mg PO DAILY #8 tablet 10/24/17 Anemia: Yes Asthma: Yes Cancer: No Cardiac Disorders: No COPD: No Diabetes: No HTN: No Seizures: No Thyroid Disease: No - Surgical History Abdominal Surgery: Yes (IUD SX REMOVED) - Family Disease History Family Disease History: Diabetes: Grandparents (pat gf) - Reproductive History (#): 9 Para: 3 Therapeutic (s) & number: Yes Spontaneous : 0 - Immunization History Immunization Up to Date: Yes - Suicide/Smoking/Psychosocial Hx Smoking Status: No Smoking History: Never smoked Have you smoked in the past 12 months: No Number of Cigarettes Smoked Daily: 0 Cigars Per Day: 0 Hx Alcohol Use: No Drug/Substance Use Hx: No Substance Use Type: None Hx Substance Use Treatment: No Review of Systems - Review of Systems Able to Perform ROS?: Yes Comments:: 10/24/17 11:24 CONSTITUTIONAL: Absent: fever, chills, diaphoresis, generalized weakness, malaise, loss of appetite HEENT: Absent: rhinorrhea, nasal congestion, throat pain, throat swelling, difficulty swallowing, mouth swelling, ear pain, eye pain, visual Changes CARDIOVASCULAR: Absent: chest pain, loss of consciousness, palpitations, irregular heart rate, peripheral edema RESPIRATORY: Present: cough, SOB, chest tightness Absent: dyspnea with exertion, orthopnea, wheezing, stridor, hemoptysis MUSCULOSKELETAL: Absent: myalgia, arthralgia, joint swelling SKIN: Absent: rash, itching, pallor NEUROLOGIC: Present: headache Absent: focal weakness or paresthesias, dizziness, unsteady gait, seizure, mental status changes, bladder or bowel incontinence Is the patient limited Amharic proficient: No *Physical Exam - Vital Signs Last Vital Signs Temp Pulse Resp BP Pulse Ox 98.4 F 108 H 20 117/64 100 10/24/17 11:06 10/24/17 11:06 10/24/17 11:06 10/24/17 11:06 10/24/17 11:06 - Physical Exam Comments: 10/24/17 11:25 GENERAL: Well developed, well nourished. Awake and alert. No acute distress. HEENT: Normocephalic, atraumatic. PERRLA, EOMI. No conjunctival pallor. Sclera are non- icteric. Moist mucous membranes. Oropharynx is clear. NECK: Supple. Full ROM. No JVD. Carotid pulses 2+ and symmetric, without bruits. No thyromegaly. No lymphadenopathy. CARDIOVASCULAR: Regular rate and rhythm. No murmurs, rubs, or gallops. Distal pulses are 2+ and symmetric. PULMONARY: No evidence of respiratory distress. Lungs clear to auscultation bilaterally. Fair aeration to the bases. No wheezing, rales or rhonchi. EXTREMITIES: No cyanosis. No clubbing. No edema. No calf tenderness. SKIN: Warm and dry. Normal capillary refill. No rashes. No jaundice. NEUROLOGICAL: Alert, awake, appropriate. Cranial nerves 2-12 intact. No deficits to light touch and temperature in face, upper extremities and lower extremities. No motor deficits in the in face, upper extremities and lower extremities. Normoreflexic in the upper and lower extremities. Normal speech. Toes are down- going bilaterally. Gait is normal without ataxia. PSYCHIATRIC: Cooperative. Good eye contact. Appropriate mood and affect. Medical Decision Making - Medical Decision Making 10/24/17 11:40 Pt. is a 27 y/o F who presents to the ED with three days of cough and headache. No gross neurological deficits, feels like usual migraine pattern. Lungs with only fair aeration to the bases. Given symptoms and history, probable asthma exacerbation. Duoneb and tylenol given with relief of symptoms. Will dc home with prednisone. Return precautions given. Pt. understands all dc instructions and all questions were answered. *DC/Admit/Observation/Transfer Diagnosis at time of Disposition: Asthma Qualifiers: Asthma severity: mild Asthma persistence: intermittent Asthma complication type : with acute exacerbation Qualified Code(s): J45.21 - Mild intermittent asthma with (acute) exacerbation - Discharge Dispostion Disposition: HOME Condition at time of disposition: Stable Decision to Admit order: No - Referrals - Patient Instructions Printed Discharge Instructions: DI for Asthma -- Adult Additional Instructions: You have an asthma exacerbation. Please take the nebulizer treatment every 4 hours for the next 5 days. Continue to take the prednisone. Please follow the directions on the bottle. You may take the cough syrup every 6 hours as needed. Do not drive after taking this medication as it may make you sleepy. Follow-up with her primary care doctor this week. Return to the emergency department if you have increased difficulty breathing, shortness of breath, chest pain, or have any changes in your symptoms. - Post Discharge Activity Forms/Work/School Notes: Back to Work
[2017-10-24] MEDS ORDERED: ACETAMINOPHEN 325 MG TABLET (FP) PO ONE (11:37)
[2017-10-24] MEDS ORDERED: ALBUTEROL SO4 2.5/IPRATROPIUM 0.5 INH SOL 3 ML VIAL.NEB. NEB ONE ×2 (11:37→11:40)
[2017-10-24] MEDS ORDERED: ACETAMINOPHEN 325 MG TABLET (FP) ONE (11:39)
[2017-10-24] MEDS ORDERED: predniSONE 20 MG TABLET (UD) PO ONE (12:01)
[2017-10-24] MEDS ORDERED: predniSONE 20 MG TABLET (UD) ONE (12:02)
== END 2017-10-24 12:10 | disposition home or self-care (01) ==
LOC: JER 11:03 → JERFT 11:03
PROC: 3E0F7GC Introduction of Other Therapeutic Substance into Respiratory Tract, Via Natural or Artificial Opening (ICD-10-PCS; principal; 2017-10-24)
DX: J45.21 Mild intermittent asthma with (acute) exacerbation (principal)
CPT/HCPCS: 99281-25; J7620

== ENCOUNTER 2017-11-20 14:55 | Emergency (ER) | payer OTHER ==
[2017-11-20 14:59] VITALS: TEMP 97.9; BMI 32.1
[2017-11-20] MEDS ORDERED: RANITIDINE HCL 150 MG TABLET (FP) PO ONE (15:09)
[2017-11-20] MEDS ORDERED: diphenhydrAMINE HCL 12.5 MG/5 ML UNIT-DOSE CUPS PO ONE (15:09)
--- NOTE | 2017-11-20 15:19 | PDOC ---
History of Present Illness - History of Present Illness Initial Comments: 11/20/17 15:10 27 yo F with h/o asthma who p/w tongue tingling. 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 She reports facial flushing following ingestion of "shrimp and noodles" at approximately 2:20 PM. Patient states she was sent downstairs by her boss. She denies chest tightness, dysphagia, inability to tolerate PO secretions, hives/rash, chest pain, SOB. Still complains of tongue tingling. Denies new topical application of emollients, makeup, soaps/cleansers , detergents. Denies OTC symptom management. Denies F/C, N/V, CP, SOB, abdominal pain, diarrhea, constipation, urinary complaints, weakness, lightheadedness. PMHx: as noted above. Denies h/o allergies/anaphylaxis, or Epi pen use. ROS: as noted above SHx: Social Etoh. Denies tobacco, IVDA Allergies: NKDA <Carlos Alberto Cabral - Last Filed: 11/20/17 16:11> <Shiraz Pan - Last Filed: 11/20/17 16:40> - General Chief Complaint: Allergic Reaction Stated Complaint: ALLERGIC REACTION Time Seen by Provider: 11/20/17 15:01 Past History - Past Medical History Anemia: Yes Asthma: Yes Cancer: No Cardiac Disorders: No COPD: No Diabetes: No HTN: No Seizures: No Thyroid Disease: No - Surgical History Abdominal Surgery: Yes (IUD SX REMOVED) - Family Disease History Family Disease History: Diabetes: Grandparents (pat gf) - Reproductive History (#): 9 Para: 3 Therapeutic (s) & number: Yes Spontaneous : 0 - Immunization History Immunization Up to Date: Yes - Suicide/Smoking/Psychosocial Hx Smoking Status: No Smoking History: Never smoked Have you smoked in the past 12 months: No Number of Cigarettes Smoked Daily: 0 Cigars Per Day: 0 Hx Alcohol Use: No Drug/Substance Use Hx: No Substance Use Type: None Hx Substance Use Treatment: No <Carlos Alberto Cabral - Last Filed: 11/20/17 16:11> <Shiraz Pan - Last Filed: 11/20/17 16:40> - Past Medical History Allergies/Adverse Reactions: Allergies Allergy/AdvReac Type Severity Reaction Status Date / Time No Known Allergies Allergy Verified 11/20/17 14:56 Home Medications: Ambulatory Orders Epinephrine [Epipen] 0.3 mg IJ ONCE PRN #1 auto.injct MDD 1 11/20/17 *Physical Exam - Vital Signs Last Vital Signs Temp Pulse Resp BP Pulse Ox 97.9 F 92 H 18 127/62 98 11/20/17 14:56 11/20/17 14:56 11/20/17 14:56 11/20/17 14:56 11/20/17 14:56 - Physical Exam Comments: 11/20/17 15:19 GENERAL: Awake, alert, and fully oriented, in no acute distress HEAD: No signs of trauma, normocephalic, atraumatic EYES: PERRLA, EOMI, sclera anicteric, conjunctiva clear ENT: Absent mucosal/tongue edmea. Uvula midline and intact. Auricles normal inspection, hearing grossly normal, nares patent, oropharynx clear without exudates. Moist mucosa NECK: Normal ROM, supple, no lymphadenopathy, JVD, or masses LUNGS: No distress, speaks full sentences, clear to auscultation bilaterally HEART: Regular rate and rhythm, normal S1 and S2, no murmurs, rubs or gallops, peripheral pulses normal and equal bilaterally. ABDOMEN: Soft, nontender, normoactive bowel sounds. No guarding, no rebound. No masses EXTREMITIES : Normal inspection, Normal range of motion, no edema. No clubbing or cyanosis. SKIN: Warm, Dry, normal turgor, no rashes or lesions noted <Carlos Alberto Cabral - Last Filed: 11/20/17 16:11> - Vital Signs Last Vital Signs Temp Pulse Resp BP Pulse Ox 97.9 F 92 H 18 127/62 98 11/20/17 14:56 11/20/17 14:56 11/20/17 14:56 11/20/17 14:56 11/20/17 14:56 <Shiraz Pan - Last Filed: 11/20/17 16:40> ED Treatment Course - Medications Given in the ED: ED Medications Discontinued Medications Generic Name Dose Route Start Last Admin Trade Name Freq PRN Reason Stop Dose Admin Diphenhydramine HCl 25 mg 11/20/17 15:09 11/20/17 15:30 Benadryl Oral Solution - PO 11/20/17 15:10 25 mg ONCE ONE Administration Ranitidine HCl 300 mg 11/20/17 15:09 11/20/17 15:30 Zantac - PO 11/20/17 15:10 300 mg ONCE ONE Administration <Shiraz Pan - Last Filed: 11/20/17 16:40> Medical Decision Making - Medical Decision Making 11/20/17 15:13 27 yo F with h/o asthma who p/w tongue tingling and facial flushing. VSS, AF. Patient with absent mucosal edema, uritcarial reaction, tongue swelling, or inability to tolerate oral secretions. Absent stridor, wheezing on physical exam. Low suspicion of severe allergic reaction or anaphylaxis. No evidence of impending respiratory distress/compromise. Will treat and observe. ED Course: Diphenhydramine, Ranitidne 11/20/17 16:13 Patient status improved. Tingling now resolved. No evidence of resp distress. Epi Pen sent to pharmacy. Patient is stable for d/c with return precautions. <Carlos Alberto Cabral - Last Filed: 11/20/17 16:11> *DC/Admit/Observation/Transfer - Discharge Dispostion Decision to Admit order: No - Attestations Physician Attestion: 11/20/17 15:20 I attest to the information provided in this note. <Carlos Alberto Cabral - Last Filed: 11/20/17 16:11> <Shiraz aPn - Last Filed: 11/20/17 16:40> Diagnosis at time of Disposition: Acute allergic reaction Qualifiers: Encounter type: initial encounter Qualified Code(s): T78.40XA - Allergy, unspecified, initial encounter - Discharge Dispostion Disposition: HOME Condition at time of disposition: Stable - Prescriptions Prescriptions: Epinephrine [Epipen] 0.3 mg IJ ONCE PRN #1 auto.injct MDD 1 PRN Reason: Shortness Of Breath - Referrals Referrals: ON STAFF,NOT [Primary Care Provider] - Christine Mccray MD [Staff Physician] - - Patient Instructions Printed Discharge Instructions: DI for General Allergic Reactions Additional Instructions: Please return to the emergency department with any new or worsening symptoms or concerns. Please follow up with your primary care physician within 72 hours. Epi pen sent to pharmacy. Please use epi pen as needed for severe allergic reaction/anaphylaxis in case of airway closure and difficulty breathing following exposure to contact allergen. Please follow up with herbicide sprayer within one week. - Post Discharge Activity Forms/Work/School Notes: Back to Work
[2017-11-20] MEDS ORDERED: diphenhydrAMINE HCL 12.5 MG/5 ML BULK BOTTLE ONE (15:27)
[2017-11-20] MEDS ORDERED: RANITIDINE HCL 150 MG TABLET (FP) ONE (15:28)
--- NOTE | 2017-11-20 15:58 | PDOC ---
Attending Attestation - ED Attending Attestation I have performed the following: I have examined & evaluated the patient, The case was reviewed & discussed with the resident, I agree w/resident's findings & plan, Exceptions are as noted - HPI HPI: 11/20/17 16:36 The patient is a 27 year old female with a significant past medical history of asthma who presents to the emergency department for evaluation of tongue tingling. The patient reports tongue tingling 10 minutes prior to presentation after ingesting shrimp and noodles. The patient reports she was prompted by her boss to visit the emergency department for evaluation of her condition. The patient denies chest pain, shortness of breath, headache, and dizziness. Denies fevers, chills, nausea, vomiting, diarrhea, and constipation. Denies taking any medication for symptoms. Allergies: NKA Past surgical history: , IUD removed. Social history: Social alcohol consumption noted. No reported cigarette or drug use. - Physicial Exam PE: Vitals: Triage Vital signs reviewed General Appearance: no acute distress, well nourished well developed, Head: Atraumatic, normocephalic Neck: Supple;No Nuchal rigidity Chest Wall: Nontender Cardiac: Regular rate and rhythm, no murmurs, no rubs, no gallops, Lungs: No stridor. No tongue swelling. No wheezing. Clear to auscultation bilateral, good air movement bilaterally, Abdomen: Soft, nondistended, normal bowel sounds, nontender to palpation Extremities: Full range of motion to all extremities, no cyanosis, clubbing, or edema Skin: Warm and dry, no rashes or lesions, no petechiae Psych: normal mood, normal affect <Ronak Blas - Last Filed: 11/20/17 16:36> - Resident Resident Name: Carlos Alberto Cabral - Medical Decision Making The patient is a 27 year old female with a significant past medical history of asthma who presents to the emergency department for evaluation of tongue tingling. The patient reports tongue tingling 10 minutes prior to presentation after ingesting shrimp and noodles. The patient reports she was prompted by her boss to visit the emergency department for evaluation of her condition. The patient denies chest pain, shortness of breath, headache, and dizziness. Denies fevers, chills, nausea, vomiting, diarrhea, and constipation. Denies taking any medication for symptoms. Allergies: NKA Past surgical history: , IUD removed. Social history: Social alcohol consumption noted. No reported cigarette or drug use. I examined the patient after she had received Benadryl and ranitidine. She is currently completely asymptomatic with no tongue or upper airway symptoms. There is no uvula edema she is controlling her secret secretions. She has no stridor and no respiratory findings Mild possible ALLERGIC reaction. Patient advised to avoid shrimp and Ramen noodles. She is provided with an EpiPen in case of more severe ALLERGIC reaction in the future. She was provided with ALLERGY follow-up Findings, the need for follow-up and strict return instructions discussed with patient. <Shiraz Pan - Last Filed: 11/20/17 18:55> Attestations - Attestations Documentation prepared by Ronak Blas, acting as coroner/medical examiner for Shiraz aPn MD. <Ronak Blas - Last Filed: 11/20/17 16:36>
[2017-11-20 16:41] VITALS: BP 111/68; PULSE 81
== END 2017-11-20 16:41 | disposition home or self-care (01) ==
LOC: JER 14:55
DX: T78.40XA Allergy, unspecified, initial encounter (principal)
CPT/HCPCS: 99281-25